=== PATIENT | male | born 1990 | race Caucasian/White ===

== ENCOUNTER 2023-08-25 22:37 | Emergency (ER) | payer BC, SELFPAY ==
[2023-08-25 22:38] VITALS: BP 147/98; PULSE 79; RESP 16; TEMP 36.7; O2SAT 98; BMI 43.3
--- NOTE | 2023-08-25 22:50 | ED.VIS.LOWEX ---
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 He sustained a laceration. He worked for the next 2 hours finishing the job before he came in. He has no significant pain and did not have a lot of bleeding. No other injuries. Tetanus Immunization: >10 years PFSH PFS Medical History no medical history no medical history Home Medications amoxicillin 875 mg-potassium clavulanate 125 mg tablet 1 tab PO BID #20 tabs 04/09/22 [Rx Last Taken Unknown] cephalexin 500 mg capsule 500 mg PO TID #21 CAPSULES 08/25/23 [Rx Last Taken Unknown] Allergy/AdvReac Type Severity Reaction Status Date / Time No Known Allergies Allergy Verified 08/25/23 22:38 Social History Smoking Status: Never smoker ROS ROS ED Constitutional Constitutional ED: Denies chills or fever(s) Musculoskeletal Musculoskeletal: Reports extremity pain; Denies neck pain Integumentary Reports laceration; Denies Abrasions or rash Neurologic Neurologic: Denies paresthesias or weakness EXAM Physical Exam Const Vital Signs: 08/25/23 22:38 Temperature 98.1 F Temperature Source Temporal Pulse Rate 79 Respiratory Rate 16 Blood Pressure 147/98 H Blood Pressure Mean 114 Pulse Ox 98 Oxygen Delivery Method Room Air Positive well nourished and well developed General Appearance ED: well developed and NAD Neck full ROM and supple Back/Spine normal ROM and normal to inspection Extremity full ROM Extremity Narrative: Laceration in the area of the left tibial tuberosity. No significant bony tenderness or signs of infection. Neuro oriented x3, no focal motor deficits and no sensory deficits noted Sensorium / Orientation: alert Psych mental status grossly normal and thought process normal Skin Skin Narrative: 5 cm horizontal J-shaped but mostly linear clean appearing laceration across the proximal aspect of the left lower leg anteriorly, in the area of the tibial tuberosity. Part of the periosteum is visible through the subcutaneous tissues. There is no damage to it. Is full range of motion of the knee without any difficulty. Rashes: no rashes MDM MDM MDM Narrative Medical decision making narrative: Being a farm accident, although there was grass and dirt on the outside of his leg and the wound was not grossly contaminated, it was thoroughly irrigated, and I can visualize periosteum so I am putting him on prophylactic antibiotics due to the depth of the wound into fascial planes. See the procedure note for repair details, basically the laceration was shaped like a hook with the majority of it being linear and then a J/L at the end of it. So the majority of it was repaired with horizontal mattress and then some simple sutures to reapposed the skin edges in the area of the hawk. His tetanus was updated. Procedures Lacerations L lower leg: Length: 5 cm Depth: Sub Q Shape: L-shaped Prep: Chlorhexadine Laceration repair: Irrigated, Lidocaine (1%, 4cc), Local, Skin sutures and Wound explored Irrigated (ml): 120 Number of Sutures/Millie: 6 Suture Information: Ethilon, Simple (#3), Horizontal (mattress #3) and - (3-0) Discharge Plan Triage Chief Complaint: Laceration ED Provider: Pepito Fischer Dx/Rx/DC Orders Clinical Impression: Laceration of left lower leg Instructions: ED Laceration Extremity Prescriptions: New cephalexin [cephalexin] 500 mg capsule 500 mg PO TID Qty: 21 0RF No Action amoxicillin-pot clavulanate 875-125 mg tablet 1 tab PO BID Qty: 20 0RF Primary Care Provider: Care Physician,No Primary Activity Restrictions/Additional Instructions: Return to the ER if any issues with the wound you are immediately concerned about. Suture removal in 2 weeks. Disposition Disposition: Home, Self Care
[2023-08-25] MEDS: Lidocaine 1% (20 ml mdv) 20 ML Vial INFILT (22:56)
[2023-08-25] MEDS: Diphth,Pertuss(Acell),Tet Vac 0.5 ML Vial IM (22:56)
[2023-08-25] MEDS: Cephalexin 250 MG Capsule 500 MG PO (22:56)
== END 2023-08-25 23:46 | disposition home or self-care (01) ==
PROVIDERS: Emergency Provider Emergency Medicine; Visit Provider Emergency Medicine
DX: S81.812A Laceration without foreign body, left lower leg, initial encounter (principal); W26.8XXA Contact with other sharp object(s), not elsewhere classified, initial encounter; Y92.79 Other farm location as the place of occurrence of the external cause; Y99.0 Civilian activity done for income or pay; Z23 Encounter for immunization
CPT/HCPCS: 12002; 90471; 90715; 99283

== ENCOUNTER 2024-04-19 21:00 | Emergency (ER) | payer MEDICAID, SELFPAY ==
[2024-04-19 21:01] VITALS: BP 145/101; PULSE 77; RESP 18; TEMP 36.7; O2SAT 98; BMI 45.1
[2024-04-19 21:03] VITALS: BP 145/101; PULSE 77; RESP 18; TEMP 36.7; O2SAT 98
[2024-04-19 22:03] VITALS: BP 133/97; PULSE 63; RESP 18; TEMP 36.7; O2SAT 95
--- NOTE | 2024-04-19 22:10 | US_ITS ---
STUDY: VENOUS DOPPLER ULTRASOUND - LEFT LOWER EXTREMITY REASON FOR EXAM: Male, 33 years old. Trauma to lower half of left leg, pain, swelling TECHNIQUE: Ultrasound evaluation of the deep vein system to include link-scale imaging and compression was performed. Link-scale imaging and Doppler sonographic evaluation, including duplex spectral analysis and qualitative color flow sonography, was performed. COMPARISON: None. FINDINGS: Common Femoral Vein: Normal compression, spontaneity and augmentation. Normal color Doppler. Common Femoral Vein/Greater Saphenous Junction: Normal compression, spontaneity and augmentation. Normal color Doppler. Deep Femoral Vein: Normal compression, spontaneity and augmentation. Normal color Doppler. Femoral Proximal: Normal compression, spontaneity and augmentation. Normal color Doppler. Femoral Middle: Normal compression, spontaneity and augmentation. Normal color Doppler. Femoral Distal: Normal compression, spontaneity and augmentation. Normal color Doppler. Popliteal Vein: Normal compression, spontaneity and augmentation. Normal color Doppler. Posterior Tibial Vein: Normal compression, spontaneity and augmentation. Normal color Doppler. Peroneal Vein: Normal compression, spontaneity and augmentation. Normal color Doppler. US/Venous Duplex Imag/Limited/Uni IMPRESSION: No DVT or significant hematoma noted Electronically Signed: Nacho Hector MD at 23:17 EST ,
[2024-04-19] MEDS: Doxycycline 100 MG CAPSULE PO (22:42)
[2024-04-19 22:49] VITALS: BP 133/97; PULSE 63; RESP 18; TEMP 36.7; O2SAT 95
--- NOTE | 2024-04-19 23:17 | EX.ED.DYSGE1 ---
HPI History of Present Illness Chief Complaint: Cellulitis Informant: patient Narrative Narrative: Patient is a 33-year-old male with no send past medical history presenting with redness and swelling as well as slight tingling to his left leg. Patient states he bruised it about 10 days ago. He struck it on something. About 2 days ago he developed redness to the area became more sore. He notes expression when he walks on it he starts to get tingling. He does like his leg slightly more swollen. Denies any systemic symptoms such as fever or chills. Denies any shortness of breath difficulty breathing. Denies any history of DVT or PE. States he is overall been feeling well. Is not aware of any history of abscess or cellulitis. PFSH PFSH Home Medications ?Medication ?Instructions ?Recorded ?Last Taken ?Type amoxicillin 875 mg-potassium 1 tab PO BID #20 tabs 04/09/22 Unknown Rx clavulanate 125 mg tablet cephalexin 500 mg capsule 500 mg PO TID #21 CAPSULES 08/25/23 Unknown Rx doxycycline hyclate 100 mg capsule 100 mg PO BID #20 caps 04/19/24 Unknown Rx Allergy/AdvReac Type Severity Reaction Status Date / Time No Known Allergies Allergy Verified 04/19/24 21:00 Surgical History H/O eye surgery Social History Smoking Status: Never smoker ROS ROS ED Constitutional Constitutional ED: Denies chills or fever(s) Cardiovascular Cardiovascular: Denies chest pain Respiratory/Chest Respiratory/Chest: Denies cough or dyspnea Gastrointestinal Gastrointestinal: Denies nausea or vomiting Musculoskeletal Musculoskeletal: Reports other Details: Right sanchez discomfort and swelling ; Denies arthralgias or myalgias Integumentary Reports rash; Denies abscess Neurologic Neurologic: Denies paresthesias or weakness Psychiatric Psychiatric: Denies anxiety Hematologic/Lymphatic Hematologic/Lymphatic: Denies easy bleeding or easy bruising EXAM Physical Exam Const Vital Signs: 04/19/24 21:01 04/19/24 21:03 04/19/24 22:03 Temperature 98.1 F 98.1 F 98.1 F Temperature Source Oral Oral Oral Pulse Rate 77 77 63 Respiratory Rate 18 18 18 Blood Pressure 145/101 H 145/101 H 133/97 H Blood Pressure Mean 115 115 109 Pulse Ox 98 98 95 Oxygen Delivery Method Room Air Room Air Room Air 04/19/24 22:49 Temperature 98.1 F Temperature Source Oral Pulse Rate 63 Respiratory Rate 18 Blood Pressure 133/97 H Blood Pressure Mean 109 Pulse Ox 95 Oxygen Delivery Method Room Air Positive well nourished and well developed General Appearance ED: well developed and NAD HEENT Reports moist mucous membranes Neck supple Chest Wall inspection of chest normal and palpation of chest normal Resp normal respiratory effort and clear to auscultation bilaterally Cardio regular rate and regular rhythm Cardio Narrative: 2+ DP pulses Extremity Extremity Narrative: Patient has no obvious bony deformity. No tense palpation of the left knee or ankle. No tense palpation over the fibular head. Compartments are soft. Does have some mild nonpitting edema of the left lower extremity compared to the right. Very mild tenderness to palpation of the left mid anterior sanchez General Extremety ED: Yes tenderness Neuro oriented x3 Sensorium / Orientation: alert Sensory Exam: No sensory level loss detected Motor Exam: strength 5/5 throughout; Negative for general weakness Psych mental status grossly normal Skin Skin Narrative: Approximately 12 cm x 6 cm area of erythema and warmth to the mid left anterior sanchez. No associated lymphangitic streaking. No drainage or fluctuance appreciated. The medial aspect of the mid leg there is an area of ecchymosis. MDM MDM MDM Narrative Medical decision making narrative: Patient is evaluated for redness and slight swelling to his left lower leg. Had reported trauma about a week and a half ago but the redness started 2 days ago. Suspect cellulitis but will also obtain venous duplex to rule out DVT. Is started on doxycycline. Patient is good distal pulses low suspicion for peripheral vascular disease, compartment syndrome or more severe pathology. Is otherwise quite well-appearing. Does not have any significant bony tenderness I do not think x-rays indicated. Patient can referral for primary care doctor. Placed on a course of doxycycline. Discussed RICE therapy. Counseled on return precautions. Wound edges are marked by nursing staff. Patient discharged home in stable condition. Radiography Diagnostic Testing: Clinical Impression(s) from Imaging Studies Venous Duplex 04/19/24 22:10 IMPRESSION: No DVT or significant hematoma noted Electronically Signed: Nacho Hector MD at 23:17 EST , Discharge Plan Triage Chief Complaint: Cellulitis ED Provider: Tracey Bowers Dx/Rx/DC Orders Clinical Impression: Left leg cellulitis Instructions: ED Cellulitis Prescriptions: New doxycycline hyclate 100 mg capsule 100 mg PO BID Qty: 20 0RF No Action amoxicillin-pot clavulanate 875-125 mg tablet 1 tab PO BID Qty: 20 0RF cephalexin [cephalexin] 500 mg capsule 500 mg PO TID Qty: 21 0RF Primary Care Provider: Care Physician,No Primary Referrals: Ricardo Ventura MD [Med Staff - Active Staff] - As soon as possible Care Physician,No Primary [Primary Care Provider] - Activity Restrictions/Additional Instructions: Your ultrasound was negative for blood clot in your leg (DVT). I suspect this is cellulitis. Alternate ibuprofen and Tylenol as needed for pain. If you develop fever, worsening redness or redness streaking up the legs please return to the emergency room for recheck. Take all antibiotics as prescribed and make sure to take the entire course. Otherwise try to rest, elevate and ice the area. Compression stockings are helpful in the situation. Print Language: Mongolian Disposition Disposition: Home, Self Care Discharge Date/Time: 04/19/24 23:28
== END 2024-04-19 23:28 | disposition home or self-care (01) ==
PROVIDERS: Emergency Provider Emergency Medicine; Visit Provider Emergency Medicine
DX: L03.116 Cellulitis of left lower limb (principal)
CPT/HCPCS: 93971; 99282